=== PATIENT | female | born 1980 | race Two or more races ===

== ENCOUNTER 2017-01-16 19:40 | Emergency (ER) | payer OTHER ==
[2017-01-16 20:16] LABS: SPECIFIC GRAVITY 1.015 (1.001-1.030); URINE BILIRUBIN NEGATIVE (NEGATIVE); URINE BLOOD TRACE (NEGATIVE); URINE GLUCOSE (UA) NEGATIVE (NEGATIVE); URINE LEUKOCYTE ESTERASE NEGATIVE (NEGATIVE); URINE NITRITE NEGATIVE (NEGATIVE); URINE PROTEIN NEGATIVE (NEGATIVE); URINE UROBILINOGEN NORMAL (0-1 mg/dl)
[2017-01-16 20:21] LABS: URINE APPEARANCE CLEAR; URINE COLOR YELLOW
[2017-01-16 20:29] LABS: ABSOLUTE NEUTROPHIL COUNT 3.9 K/mm3 (1.8-7.7); BASO % 0.4 % (0.2-1.0); EOS # 0.1 (0.0-0.5); EOS % 1.7 % (0.9-2.9); HEMATOCRIT 35.7 % (37.0-47.0); IMM NEUT% 0.3 % (0-1); LYMPH # 2.4 (1.0-4.8); LYMPH % 34.8 % (15-45); MEAN CELL VOLUME 84.2 fl (81.0-99.0); MEAN CORPUSCULAR HEMOGLOBIN 28.3 pg (27.0-31.0); MEAN CORPUSCULAR HGB CONC 33.6 g/dl (33.0-37.0); MEAN PLATELET VOLUME 8.6 fl (7.4-10.4); MONO # 0.5 (0.0-0.8); MONO % 7.3 % (4-12); NEUT % 55.5 % (43-75); PLATELET COUNT 302 K/mm3 (130-400); RED CELL DISTRIBUTION WIDTH 11.9 % (11.5-14.5)
[2017-01-16 20:53] LABS: URINE BACTERIA FEW; URINE EPITHELIAL CELLS 0-1 /hpf; URINE RBC 0-1 /hpf; URINE WBC NEG /hpf
--- NOTE | 2017-01-17 08:59 | US ---
OB ULTRASOUND LESS THAN 14 WEEKS HISTORY: Light bleeding and pain. 7 weeks 2 days. Transabdominal and transvaginal obstetric ultrasound was performed. FINDINGS: INTRAUTERINE GESTATION: None identified. RIGHT OVARY: 3.5 x 2.5 x 1.9 cm. LEFT OVARY: 1.5 x 3.7 x 1.3 cm. FOCAL ADNEXAL LESIONS: Small complex cysts on the right, 1.3 cm, likely related to corpus luteum, without gross hypervascularity. OVARIAN BLOOD FLOW: Documented bilaterally. FREE FLUID: None. ENDOMETRIAL THICKNESS: 12.6 mm. IMPRESSION: No gestational sac identified. No adnexal mass lesion. The differential includes early intrauterine gestation, spontaneous , and ectopic . Continued follow-up with beta hCG values and/or imaging is recommended. Preliminary report relayed to the Emergency Medicine medical service by Dr. Estevez on 01/17/2017 at 0854 hours.
== END 2017-01-16 22:16 | disposition home or self-care (01) ==
LOC: ED 19:40
DX: O20.0 Threatened abortion (principal); Z3A.01 Less than 8 weeks gestation of pregnancy

== ENCOUNTER 2017-01-20 10:24 | Emergency (ER) | payer OTHER ==
[2017-01-20] MEDS ORDERED: ACETAMINOPHEN 500 MG TABLET ONE (12:22)
[2017-01-20] MEDS ORDERED: LACTATED RINGERS 1,000 ML ONE (12:22)
[2017-01-20 12:41] LABS: ABSOLUTE NEUTROPHIL COUNT 4.1 K/mm3 (1.8-7.7); BASO % 0.4 % (0.2-1.0); EOS # 0.1 (0.0-0.5); EOS % 1.9 % (0.9-2.9); HEMATOCRIT 36.9 % (37.0-47.0); HEMOGLOBIN 12.3 gm/l (12.0-16.0); IMM NEUT% 0.3 % (0-1); LYMPH # 2.1 (1.0-4.8); LYMPH % 30.6 % (15-45); MEAN CELL VOLUME 85.2 fl (81.0-99.0); MEAN CORPUSCULAR HEMOGLOBIN 28.4 pg (27.0-31.0); MEAN CORPUSCULAR HGB CONC 33.3 g/dl (33.0-37.0); MEAN PLATELET VOLUME 8.8 fl (7.4-10.4); MONO # 0.5 (0.0-0.8); MONO % 6.7 % (4-12); NEUT % 60.1 % (43-75); PLATELET COUNT 281 K/mm3 (130-400); RED CELL DISTRIBUTION WIDTH 11.9 % (11.5-14.5)
[2017-01-20 13:19] LABS: SPECIFIC GRAVITY 1.015 (1.001-1.030); URINE BILIRUBIN NEGATIVE (NEGATIVE); URINE BLOOD NEGATIVE (NEGATIVE); URINE GLUCOSE (UA) NEGATIVE (NEGATIVE); URINE LEUKOCYTE ESTERASE NEGATIVE (NEGATIVE); URINE NITRITE NEGATIVE (NEGATIVE); URINE PROTEIN NEGATIVE (NEGATIVE); URINE UROBILINOGEN NORMAL (0-1 mg/dl)
[2017-01-20 13:21] LABS: URINE APPEARANCE CLEAR; URINE COLOR YELLOW
--- NOTE | 2017-01-20 14:50 | US ---
OB TRANSVAGINAL, OB COMP <14 WKS HISTORY: Early OB with bleeding. The patient is expected to be at 17 weeks 6 days gestational age. COMPARISONS: 01/16/2017. FINDINGS: Transabdominal and transvaginal sonography demonstrates a normally contoured uterus. There is no intrauterine fluid collection visualized with no yolk sac or pole observed. The maternal right ovary measures 3.2 x 1.9 x 1.9 cm is. The left ovary measures 2.8 x 1.5 x 1.5 cm. No masses or significant free fluid are observed. IMPRESSION: 1. No intrauterine fluid collection visualized. Differential considerations are as previously discussed. Recommend correlation to the beta-hCG levels, and/or repeat ultrasound.
--- NOTE | 2017-01-21 06:53 | CONS ---
Reyna Mcclelland : 1980 [id number] DATE OF EMERGENCY ROOM EVLUATION : 01/20/2017 HISTORY OF PRESENT ILLNESS: Reyna is a 36-year-old woman who came into the emergency room today because of vaginal bleeding. She was seen by the emergency room physician and then I was asked for consultation to determine a plan of management. Reyna is a 2, para 1-0-0-1 who has a 12-year-old daughter. She says that she has been sexually active for the last 12 years without using any contraception and did not conceive until just now. As far as she knows she does not have any abnormality of her uterus, tubes, or ovaries, but she has never had any type of infertility workup. The patient was hoping to have another child. Her last menstrual period was on 11/26/2016 and this was a normal period. Her period prior to that was in October and was also normal. She was having regular periods. The patient is therefore now at approximately 8 weeks of amenorrhea. She says that she has been having breast tenderness for several weeks, but no significant nausea or vomiting and no other real symptoms of . She does describe feeling like movement low down in her pelvis more on the left side. Apparently this was present on Wednesday, but then went away in these last two days. The real problem is that the patient started bleeding, this was just a pinkish show on Wednesday evening. The patient came into the hospital on Wednesday and had a quantitative beta HCG of 582. She had an ultrasound at that time which showed no intrauterine , but also no signs of an ectopic . No free fluid. The patient was told to follow up with her PCP and she did actually have an appointment scheduled with Dr. Nguyễn tomorrow. She continued to have this pinkish spotting which she would notice just when she wiped herself on Wednesday and Wednesday then Wednesday evening she began bleeding with the passage of some clots. Sometimes the bleeding was a bit heavier, sometimes not so much. She did take a picture of the blood clots in the toilet and it is hard to determine anything from that picture. It could be perhaps 50 to 100 mL of clots in the base of the toilet. The patient says she was having some cramping, but really not too much pain. She says that she feels a little bit abnormal on the left side. She thinks that she passed a ball of something last night, but her description sounds like it was probably a blood clot. I could not determine whether she passed anything that looked like placental tissue. Today also the patient was having bleeding and this is why she came back to the emergency department for reevaluation. Patient's HCG today was 673. A repeat ultrasound was done and again there is no intrauterine ; there is a thickening of the endometrial lining; there is no suggestion of an ectopic by ultrasound, both ovaries appear fairly normal, and there is no significant free fluid. This patient is very definite that if there is any possibility of a normal she would want to wait and watch. I explained to her that this is extremely unlikely. I am more concerned about a possible ectopic , but possibly this is an early miscarriage. We talked about what this might mean. We talked about risks and possibly complications. A limited exam was done today and the patient has minimal tenderness on palpation of the abdomen. The tenderness is more on the left side than on the right side and there is some referred pain to that side, but no guarding and no rebound tenderness. No pelvic exam was done, but the patient has minimal bleeding at this time. She does not appear to be in any significant pain and is able to move around quite easily. I was able to obtain this history directly from the patient both in [place]ish and in Armenian. Her was also present. I talked about the possibility of doing a diagnostic laparoscopy and perhaps a dilation and curettage versus the possibility of simply waiting. In the end the patient is choosing to wait and watch. She does understand that there is a chance that her pain could get worse. She could start bleeding internally. If she does have any symptoms like this she will return to the emergency department. Otherwise, the plan is to see her back on Wednesday at the clinic for a repeat beta HCG and reevaluation. At that point, we will try to ascertain whether this is a miscarriage in progress or whether this is a tubal perhaps on the left side. The chance that this is a viable is extremely unlikely. Patient understands and she agrees with this plan. She was given an appointment to see me on Wednesday afternoon. She will contact us if she has any concerns prior to that. JOB: [id number]
== END 2017-01-20 16:22 | disposition home or self-care (01) ==
LOC: ED 10:24
DX: O46.91 Antepartum hemorrhage, unspecified, first trimester (principal); Z3A.01 Less than 8 weeks gestation of pregnancy
CPT/HCPCS: 84702; 85025; 81003; 76817; 76801; 86901; 99284 ×2; 96360; A9270; J7120